=== PATIENT | male | born 1955 | race Asian ===

== ENCOUNTER 2017-10-25 20:18 | Inpatient (IN) | payer SELFPAY ==
[~2017-10-25] VITALS: Ht 175.3 cm; Wt 89.5 kg
[2017-10-25 20:23] VITALS: BP_SYST 130
[2017-10-25] MEDS ORDERED: NACL 0.9% 1,000 ML IV ONE (20:49)
[2017-10-25] MEDS ORDERED: ONDANSETRON HCL 4 MG/2 ML VIAL IVP ONE (21:00)
[2017-10-25 21:04] LABS: BLOOD, URINE NEGATIVE (NEGATIVE); CLARITY/URINE CLEAR (CLEAR); GLUCOSE,URINE NEGATIVE (NEGATIVE); KETONES,URINE TRACE (NEGATIVE); LEUKOCYTE ESTERASE ,URINE NEGATIVE (NEGATIVE); NITRITE, URINE NEGATIVE (NEGATIVE); PROTEIN URINE 2+ (NEGATIVE); UROBILINOGEN,URINE 0.2 (0.2-1.0)
[2017-10-25 21:17] LABS: BILIRUBIN,URINE NEGATIVE (NEGATIVE); COLOR,URINE AMBER (YELLOW)
[2017-10-25 21:19] LABS: BACTERIA,URINE FEW /HPF (None Seen); HYALINE CASTS, URINE 0-10 /LPF (None Seen); MUCUS,URINE None Seen /LPF (None Seen); RBC,URINE NONE SEEN /HPF (0-3); WBC,URINE 0-3 /HPF (0-3)
[2017-10-25 21:50] LABS: BASOPHILS # (AUTO) 0.1 K/uL (0.0-0.2); BASOPHILS % (AUTO) 0.6 % (0.0-2.0); EOSINOPHILS # (AUTO) 0.1 K/uL (0.0-0.4); EOSINOPHILS % (AUTO) 1.1 % (0.0-4.0); HEMOGLOBIN 15.7 g/dL (14.0-18.0); LYMPHOCYTES # (AUTO) 2.6 K/uL (1.0-5.5); LYMPHOCYTES % (AUTO) 22.6 % (20.5-51.5); MEAN CORPUSCULAR HEMOGLOBIN 30 pg (27-31); MEAN CORPUSCULAR HGB CONC 32 % (32-36); MEAN CORPUSCULAR VOLUME 93 fL (79.0-98.0); MONOCYTES # (AUTO) 0.9 K/uL (0.0-1.0); MONOCYTES % (AUTO) 7.7 % (1.7-9.3); PLATELET COUNT (AUTO) 260 K/uL (130-430); RED BLOOD CELL COUNT(AUTO) 5.25 MIL/uL (4.2-6.2); RED CELL DISTRIBUTION WIDTH 12.9 % (9.0-15.0); WHITE BLOOD COUNT (AUTO) 11.7 K/uL (4.8-10.8)
[2017-10-25 21:59] LABS: CREATININE 1.33 mg/dL (0.55-1.30); POTASSIUM 3.7 mmol/L (3.5-5.1)
[2017-10-25] MEDS ORDERED: metroNIDAZOLE 250 MG TABLET PO ONE (22:00)
[2017-10-25] MEDS ORDERED: COR25 PO (22:02)
[2017-10-25] MEDS ORDERED: LOSA50TA3 PO (22:02)
[2017-10-25] MEDS ORDERED: HUM10VIA7 SUBCUT ×2 (22:03)
[2017-10-25 22:04] LABS: ALBUMIN 4.2 g/dL (3.4-4.8); TOTAL BILIRUBIN 0.8 mg/dL (0.0-1.0)
[2017-10-25] MEDS ORDERED: metroNIDAZOLE 500 MG TABLET ONE (22:17)
[2017-10-25] MEDS ORDERED: SIMETHICONE 80 MG TAB.CHEW PO PRN (22:45)
[2017-10-25] MEDS ORDERED: LORazepam 2 MG/ML VIAL IVP PRN (22:45)
[2017-10-25] MEDS ORDERED: ONDANSETRON HCL 4 MG/2 ML VIAL IVP PRN (22:45)
[2017-10-25] MEDS ORDERED: ACETAMINOPHEN 325 MG TABLET PO PRN (22:45)
[2017-10-25] MEDS ORDERED: ZOLPIDEM TARTRATE 5 MG TABLET PO PRN (22:45)
[2017-10-25] MEDS ORDERED: BISACODYL 10 MG/SUPPOSITORY RC PRN (22:45)
[2017-10-25] MEDS ORDERED: MORPHINE 2 MG/ML INJ. SYRINGE IVP PRN (22:45)
[2017-10-25] MEDS ORDERED: POTASSIUM CHLORIDE 20 MEQ TAB.PRT.SR PO PRN (22:45)
[2017-10-25] MEDS ORDERED: HYDROcodone/ACETAMIN 10-325 MG TAB PO PRN (22:45)
[2017-10-25 22:52] VITALS: BP_SYST 122
[2017-10-25] MEDS: NACL 0.9% 1,000 ML IV SCH (23:11)
[2017-10-25] MEDS ORDERED: AMLO5TAB4 PO (23:12)
[2017-10-25] MEDS ORDERED: SIMV40TA2 PO (23:12)
[2017-10-25 23:15] LABS: FREE T4 (FREE THYROXINE) 1.1 ng/dL (0.6-1.6); THYROID STIMULATING HORMONE 0.57 uIu/mL (0.34-4.82)
[2017-10-26] MEDS ORDERED: INSULIN REGULAR, HUMAN 100 UNITS/ML, 10 ML VIAL (novoLIN R) SUBCUT PRN
[2017-10-26 00:41] VITALS: BP_SYST 122
[2017-10-26] MEDS: metroNIDAZOLE 500 MG TABLET PO SCH ×2 (04:15→09:58)
[2017-10-26 04:48] VITALS: BP_SYST 120
[2017-10-26] MEDS: NACL 0.9% 1,000 ML IV SCH (06:16)
[2017-10-26 07:05] LABS: CHOLESTEROL 106 mg/dL (<200); HDL CHOLESTEROL 35 mg/dL (>45); LDL CHOLESTEROL 57 mg/dL (<100); TRIGLYCERIDES 97 mg/dL (30-150)
[2017-10-26 08:19] VITALS: BP_SYST 123
[2017-10-26] MEDS ORDERED: CARVEDILOL 25 MG TABLET (COREG) PO SCH (09:00)
[2017-10-26] MEDS ORDERED: LOSARTAN POTASSIUM 50 MG TABLET (COZAAR) PO SCH (09:00)
[2017-10-26] MEDS ORDERED: LACTOBACILLUS RHAMNOSUS GG 1 CAP CAPSULE PO SCH (09:00)
[2017-10-26] MEDS ORDERED: cefTRIAXone 1 GM in D5W 50 ML IV SCH (09:00)
[2017-10-26] MEDS ORDERED: DOCUSATE SODIUM 100 MG CAPSULE PO SCH (09:00)
[2017-10-26] MEDS: amLODIPine BESYLATE 5 MG TABLET PO SCH ×2 (09:59)
[2017-10-26 12:21] VITALS: BP_SYST 117
[2017-10-26] MEDS ORDERED: ONDA4TAB5 PO (14:10)
[2017-10-26] MEDS ORDERED: METR500T PO (14:10)
[2017-10-26 15:06] VITALS: BP_SYST 117
[2017-10-26 16:13] VITALS: BP_SYST 107
[2017-10-26] MEDS ORDERED: SIMVASTATIN 40 MG TABLET PO SCH (21:00)
[2017-10-27 08:21] LABS: T4 (THYROXINE) 6.6 ug/dL (4.5-12.0)
[2017-10-27 12:06] LABS: HEPATITIS A AB, IgM Negative (Negative); HEPATITIS B CORE AB, IgM Negative (Negative); HEPATITIS B SURFACE AG Negative (Negative)
[2017-10-28 18:43] LABS: HEMOGLOBIN A1C 11.7 % (4.8-5.6)
== END 2017-10-26 15:45 | disposition home or self-care (01) | DRG 391 ==
LOC: SED 20:18 → SMU 22:35
PROVIDERS: ADMIT Family Medicine; ATTEND Family Medicine
DX: K52.9 Noninfective gastroenteritis and colitis, unspecified (principal); N17.0 Acute kidney failure with tubular necrosis; E11.9 Type 2 diabetes mellitus without complications; F17.210 Nicotine dependence, cigarettes, uncomplicated; I10 Essential (primary) hypertension; B96.89 Other specified bacterial agents as the cause of diseases classified elsewhere; Z88.6 Allergy status to analgesic agent; Z79.899 Other long term (current) drug therapy
CPT/HCPCS: 36415; 80053; 80061; 80074; 81000-TC; 82150-TC; 82962; 83036; 83690-TC; 83735-TC; 83880; 84100-TC; 84436; 84439; 84443-TC; 84479; 85025; 87040-TC; 87045-TC; 87046; 87177; 89055; 93005; 96360; 99285; J0696; J1815; J2405; J7030; J7060